=== PATIENT | female | born 1985 | race Caucasian/White ===

== ENCOUNTER 2017-02-24 23:10 | Emergency (ER) | payer BC ==
[~2017-02-24] VITALS: Ht 172.7 cm; Wt 88.5 kg
[~2017-02-24 23:10] MED LIST: BEN25 PO; EPIN0.3P4 INJ; PRED20TA PO
[2017-02-24 23:14] VITALS: Ht 172.7 cm; Wt 88.5 kg
[2017-02-25] MEDS ORDERED: TETRACAINE 0.5% 4 ML OPH LEFT EYE SCH (02:30)
[2017-02-25] MEDS ORDERED: FLUORESCEIN STRIP LEFT EYE ONE (02:30)
[2017-02-25] MEDS ORDERED: TETRACAINE 0.5% 4 ML OPH RIGHT EYE SCH (02:30)
[2017-02-25] MEDS ORDERED: FLUORESCEIN STRIP RIGHT EYE ONE (02:30)
[2017-02-25 02:49] VITALS: BP 130/75; PULSE 86; RESP 14; TEMP 98
[2017-02-25] MEDS ORDERED: ALPR0.25 PO (02:52)
[2017-02-25] MEDS ORDERED: LORA10CA PO (02:52)
[2017-02-25] MEDS ORDERED: ALBU8.5H3 INH (02:52)
[2017-02-25] MEDS ORDERED: Qvar (02:52)
--- NOTE | 2017-02-25 02:55 | ERD ---
ER Documentation Chief Complaint Date/Time DATE: 02/25/17 TIME: 02:51 Chief Complaint R EYE PAIN D/T HALF OF CONTACT LENSE STUCK ON EYE HPI 31-year-old female presents here in emergency department for complaints of foreign body contact lens stuck in her right eye, patient states that her contact lenses integrated, part of the contact lens got stuck in her right eye. Patient's complaining of tearing, burning pain 4/10 scale, worse upon over any closing the eyes. Patient was seen by primary care doctor, was told to possibly just have conjunctivitis, was given Polytrim antibiotics for this. Patient continues to feel foreign body sensation in this way she is here in the emergency department. She did start taking Polytrim antibiotics tonight. ROS All systems reviewed and are negative except as per history of present illness. Medications Home Meds Active Scripts Epinephrine (Epipen 2-Heriberto) 0.3 Mg/0.3 Ml Pen.injctr, 1 EA INJ ONCE Y for ALLERGIC REACTION, #1 EA Prov:STACY LOYA MD 11/28/15 Prednisone* (Prednisone*) 20 Mg Tab, 40 MG PO DAILY for 3 Days, TAB Prov:STACY LOYA MD 11/28/15 Diphenhydramine Hcl* (Benadryl*) 25 Mg Cap, 25 MG PO Q6, #20 CAP Prov:STACY LOYA MD 11/28/15 Reported Medications Alprazolam* (Xanax*) Unknown Strength Tablet, PO Q8H Y for ANXIETY, TAB 02/25/17 Loratadine* (Claritin*) Unknown Strength Capsule, PO DAILY, CAP 02/25/17 Albuterol Sulfate* (Proair HFA*) Unknown Strength Hfa.aer.ad, INH Q4, #1 INHALER 02/25/17 [Qvar] Unknown Strength No Conflict Check 02/25/17 Allergies Allergies: Coded Allergies: levofloxacin (Verified Allergy, Unknown, 12/28/14) shrimp (Verified Allergy, Unknown, 11/28/15) PMhx/Soc Medical and Surgical Hx: pt denies Surgical Hx History of Surgery: No Anesthesia Reaction: No Hx Neurological Disorder: No Hx Respiratory Disorders: Yes (ASTHMA) Hx Cardiac Disorders: No Hx Psychiatric Problems: No Hx Miscellaneous Medical Probl: No Hx Alcohol Use: No Hx Substance Use: No Hx Tobacco Use: No Smoking Status: Never smoker FmHx Family History: No coronary disease, No diabetes, No other Physical Exam Vitals Vital Signs Date Time Temp Pulse Resp B/P Pulse Ox O2 Delivery O2 Flow Rate FiO2 02/25/17 02:49 98.0 86 14 130/75 97 Room Air 02/24/17 23:14 97.5 91 20 132/77 98 Physical Exam GENERAL: The patient is well developed and appropriate for usual state of health, in no apparent distress. HEENT: Atraumatic. Bilateral eyes are PERRL EOM intact, right eye conjunctiva noted to be erythematous with contact lenses noted in the conjunctiva of the right eye. Ears: Normal tympanic membrane, no erythema or bulging. No ear canal swelling. No ear discharge. Nose: normal nasal turbinates, no erythema or swelling. Normal nasal discharge. Throat: oropharynx clear. No tonsillar swelling or tonsillar exudates. No lymphadenopathy. CHEST: Clear to auscultation bilaterally. There are no rales, wheezes or rhonchi. HEART: Regular rate and rhythm. No murmurs, clicks, rubs or gallops. No S3 or S4. ABDOMEN: Soft, nontender and nondistended. Good bowel sounds. No rebound or guarding. No gross peritonitis. No gross organomegaly or masses. No García sign or McBurney point tenderness. BACK: No midline or flank tenderness. EXTREMITIES: Equal pulses bilaterally. There is no peripheral clubbing, cyanosis or edema. No focal swelling or erythema. Full range of motion. Grossly neurovascularly intact. NEURO: Alert and oriented. Cranial nerves 2-12 intact. Motor strength in all 4 extremities with 5/5 strength. Sensation grossly intact. Normal speech and gait. SKIN: There is no apparent rash or petechia. The skin is warm and dry. HEMATOLOGIC AND LYMPHATIC: There is no evidence of excessive bruising or lymphedema. No gross cervical, axillary, or inguinal lymphadenopathy. Results 24 hrs Current Medications Medications (Trade) Dose Ordered Sig/Brayan Route PRN Reason Start Time Stop Time Status Last Admin Dose Admin Tetracaine HCl (Tetracaine 0.5% Steri-Unit Sangeeta) 1 drop ONCE LEFT EYE 02/25/17 02:30 02/25/17 02:30 DC Fluorescein Sodium (Vwfrp-H-Leaog) 1 strip ONCE ONCE LEFT EYE 02/25/17 02:30 02/25/17 02:30 DC Fluorescein Sodium (Vljip-Q-Wlmdj) 1 strip ONCE ONCE RIGHT EYE 02/25/17 02:30 02/25/17 02:31 DC 02/25/17 02:40 Tetracaine HCl (Tetracaine 0.5% Steri-Unit Sangeeta) 1 drop ONCE RIGHT EYE 02/25/17 02:30 02/26/17 02:29 02/25/17 02:39 Procedures/MDM Procedure Note: After obtaining informed consent, the right eye was numbed using tetracaine ophthalmic solution, the right eye was stained using fluorescein dye. After staining the eye, A Wood's lamp was used to evaluate the eye. Noted foreign body, this was removed without any difficulty. No corneal abrasions noted. Patient tolerated procedure well. Medical Decision making: Patient had a foreign body in the right eye, no corneal abrasion was noted after removal of the foreign body. Patient is currently allergic to levofloxacin, currently has polymyxin trimethoprim ophthalmic solution, was advised to continue taking medications to prevent infection of affected area. Patient was advised to see eye doctor within 1-2 days. No symptoms of any other eye emergencies, no other foreign body noted. The foreign body was removed without any difficulty. Patient is advised to follow-up with eye doctor within 1-2 days, return to emergency department for any worsening symptoms. A Disposition: Home. Stable. Departure Diagnosis: Primary Impression: Eye foreign body Encounter type: initial encounter Laterality: right Qualified Code: T15.91XA - Eye foreign body, right, initial encounter Condition: Stable Patient Instructions: Corneal Foreign Body, Removed Referrals: DOUG PITTMAN MD Additional Instructions: continue antibiotics, see eye doctor within 1-2 days for reevaluation GONZALO DEAN NP Feb 25, 2017 02:55
== END 2017-02-25 02:36 | disposition home or self-care (01) ==
LOC: FTE 23:10
DX: T15.91XA Foreign body on external eye, part unspecified, right eye, initial encounter (principal); J45.909 Unspecified asthma, uncomplicated; X58.XXXA Exposure to other specified factors, initial encounter; Y92.9 Unspecified place or not applicable
CPT/HCPCS: 99283

== ENCOUNTER 2017-03-20 00:28 | Emergency (ER) | payer BC ==
[~2017-03-20] VITALS: Ht 165.1 cm; Wt 88.5 kg
[~2017-03-20 00:28] MED LIST changes: +ALBU8.5H3 INH; +ALPR0.25 PO; +LORA10CA PO; +Qvar
[2017-03-20 00:40] VITALS: Ht 165.1 cm; Wt 88.5 kg
--- NOTE | 2017-03-20 00:56 | ERD ---
ER Documentation Chief Complaint Date/Time DATE: 03/20/17 TIME: 00:53 Chief Complaint rt ankle pain and swelling r/t trip and fall,took Advil at 2300 HPI Patient is a 31-year-old female who presents the emergency department for concerns right ankle and foot pain 1 day. Patient states she was on the elliptical yesterday. Patient states her foot got caught when getting off and states she twisted her ankle. Patient states presently 2 hours ago she developed some ecchymosis and swelling to the ankle and lateral side of her foot. She reports taking ibuprofen 800 mg prior to arrival. Patient states currently she has no pain. Patient is able to ambulate with minimal pain. Patient denies any injuries to the affected extremity. Patient denies any fevers, chills, nausea, vomiting or LOC. ROS All systems reviewed and are negative except as per history of present illness. Medications Home Meds Active Scripts Ibuprofen* (Motrin*) 600 Mg Tab, 600 MG PO Q6, #30 TAB Prov:ANTHONY SALMON PA-C 03/20/17 Epinephrine (Epipen 2-Heriberto) 0.3 Mg/0.3 Ml Pen.injctr, 1 EA INJ ONCE Y for ALLERGIC REACTION, #1 EA Prov:STACY LOYA MD 11/28/15 Prednisone* (Prednisone*) 20 Mg Tab, 40 MG PO DAILY for 3 Days, TAB Prov:STACY LOYA MD 11/28/15 Diphenhydramine Hcl* (Benadryl*) 25 Mg Cap, 25 MG PO Q6, #20 CAP Prov:STACY LOYA MD 11/28/15 Reported Medications Alprazolam* (Xanax*) Unknown Strength Tablet, PO Q8H Y for ANXIETY, TAB 02/25/17 Loratadine* (Claritin*) Unknown Strength Capsule, PO DAILY, CAP 02/25/17 Albuterol Sulfate* (Proair HFA*) Unknown Strength Hfa.aer.ad, INH Q4, #1 INHALER 02/25/17 [Qvar] Unknown Strength No Conflict Check 02/25/17 Allergies Allergies: Coded Allergies: levofloxacin (Verified Allergy, Unknown, 12/28/14) shrimp (Verified Allergy, Unknown, 11/28/15) PMhx/Soc Medical and Surgical Hx: pt denies Surgical Hx History of Surgery: No Anesthesia Reaction: No Hx Neurological Disorder: No Hx Respiratory Disorders: Yes (ASTHMA) Hx Cardiac Disorders: No Hx Psychiatric Problems: No Hx Miscellaneous Medical Probl: No Hx Alcohol Use: No Hx Substance Use: No Hx Tobacco Use: No Smoking Status: Never smoker Physical Exam Vitals Vital Signs Date Time Temp Pulse Resp B/P Pulse Ox O2 Delivery O2 Flow Rate FiO2 03/20/17 00:40 98.6 91 18 132/79 97 Physical Exam GENERAL: Well-developed, well-nourished female. Appears in no acute distress. HEAD: Normocephalic, atraumatic. EYES: Pupils are equally reactive bilaterally. EOMs grossly intact. No conjunctival erythema. ENT: Moist mucous membranes. No uvula deviation. No kissing tonsils. NECK: Supple. No meningismus. Normal range of motion of the neck. LUNG: Clear to auscultation bilaterally. No rhonchi, wheezing, rales or coarse breath sounds. HEART: Regular rate and rhythm. No murmurs, rubs or gallops. EXTREMITIES: Equal pulses bilaterally. No peripheral clubbing, cyanosis or edema. No unilateral leg swelling. NEUROLOGIC: Alert and oriented. Moving all four extremities without any difficulty. Normal speech. Steady gait. SKIN: Normal color. Warm and dry. No rashes or lesions. RIGHT FOOT/ANKLE: No deformity, erythema. Midfoot swelling and ankle swelling noted. Ecchymosis noted to the lateral aspect of the foot and lateral ankle. Ecchymosis also noted to the medial ankle. Normal range of motion of the ankle and all digits. Range of motion of the knee. Nontender to palpation of the tibia/fibula, midfoot, fifth metatarsal. Slightly tender to palpation of the lateral ankle.. No valgus/varus instability. Sensation intact to light touch. Neurovascularly intact. (Able to plantarflex, dorsiflex, slime foot, invert foot , raise big toe.) 2+ DP and DT pulses. Procedures/MDM ED COURSE: The patient was stable throughout ED course. I kept the patient and/or family informed of laboratory and diagnostic imaging results throughout the ED course. DIAGNOSTIC IMAGING: Read by radiologist. DIAGNOSTIC IMAGING REPORT Patient: PRAVIN TORRES : 1985 Age: 31 Sex: F MR #: [id number] DOS: 03/20/1749 Ordering MD: ANTHONY SALMON PA-C Location: [facility] Room/Bed: PROCEDURE: XR Ankle. CLINICAL INDICATION: Ankle pain. TECHNIQUE: AP, lateral and oblique views of the right ankle were performed. COMPARISON: There are no similar studies submitted for comparison. FINDINGS: There is normal bone mineralization.There is no acute fracture or dislocation.The ankle mortise is intact.No osseous lesion is identified. There is mild soft tissue swelling of the ankle most prominent over the lateral aspect of the ankle. IMPRESSION: No acute fracture or dislocation. RPTAT: HIKT .Martín Conn MD, Date Time Electronically viewed and signed by .Martín Conn MD, MD on 03/20/2017 01:28 .T/ CC: ANTHONY SALMON PA-C Patient: PRAVIN TORRES : 1985 Age: 31 Sex: F MR #: [id number] DOS: 03/20/1749 Ordering MD: ANTHONY SALMON PA-C Location: [facility] Room/Bed: PROCEDURE: XR Right Foot. CLINICAL INDICATION: Trauma. Pain.. TECHNIQUE: AP, lateral and oblique views of the right foot was obtained. The images were reviewed on a PACS workstation. COMPARISON: None. FINDINGS: There are no fractures. Joint relationships are maintained. Bone mineralization is within normal limits. Soft tissues are unremarkable. IMPRESSION: No acute abnormality. RPTAT: HMVK .Josse Justice MD, MD Date Time Electronically viewed and signed by .Josse Justice MD, MD on 03/20/2017 01:34 .K/ CC: ANTHONY SALMON PA-C DIAGNOSTIC IMAGING REPORT Patient: PRAVIN TORRES : 1985 Age: 31 Sex: F MR #: [id number] [facility] #: [id number] DOS: 03/20/17 0152 Ordering MD: ANTHONY SALMON PA-C Location: [facility] Room/Bed: PROCEDURE: PA and lateral chest x-ray. CLINICAL INDICATION: 31-year-old female. Rib pain.. TECHNIQUE: PA and lateral views of the chest. COMPARISON: None. FINDINGS: Lungs are clear.. Cardiomediastinal contours are normal. Negative for pleural effusion or pneumothorax. No acute bony abnormality. Negative for evidence of acute rib fracture. IMPRESSION: Negative for evidence of an acute chest process. No acute fractures are identified although nondisplaced rib fractures may be missed on plain radiographs. RPTAT: HCTS Physician Armando Date Time Electronically viewed and signed by Deann Hardin Physician on 03/20/2017 02: 09 CS/ CC: ANTHONY SALMON PA-C PROCEDURES: SPLINT APPLICATION: The patient was verbally consented at bedside prior to splint application. Patient was explained the risks, benefits and alternatives to this procedure. The patient was neurovascularly intact prior to and status post application of the splint. The patient tolerated the procedure well with no complications. Splint type: FRANCIS wrap Extremity: right LE Indication: ankle/ foot sprain MEDICAL DECISION MAKING: This is a 31-year-old female who presents to the ED with concerns of right ankle pain and foot pain after a fall injury off the elliptical yesterday. Vital signs were reviewed. Patient was afebrile. X-ray imaging of the right ankle and foot were unremarkable. She was placed in an Francis wrap for comfort measures. Given these findings, the patients presentation is most consistent with right ankle and foot sprain. I have a much lower clinical concern for ankle dislocation, ankle fracture, tibia fracture, fibula fracture, tibial plateau fracture, Maisonneuve fracture, foot fracture, osteomyelitis, septic joint, gout, osteoarthritis, DVT, compartment syndrome. At this time, unable to rule out any tendon and ligament injuries. Of note, prior to discharge, patient stated that she did have some right-sided rib pain. Patient requested x-ray imaging. CXR was obtained. At this time patient's presentation is most consistent with right rib contusion. Low suspicion for pneumothorax, rib fracture, pleural effusion, pneumonia. PRESCRIPTIONS: Ibuprofen DISCHARGE: At this time, patient is stable for discharge and outpatient management. RICE therapy and ROM exercises were advised to avoid stiffness. I have instructed the patient to follow-up with his/her primary care physician in 1-2 days. I have discussed with the patient the possibility of needing to see an alignment specialist for further workup and imaging if the pain persists. I have instructed the patient to promptly return to the ER for any new or worsening symptoms including increased pain, swelling, redness, warmth or fever. The patient and/or family expressed understanding of and agreement with this plan. All questions were answered. Home care instructions were provided. Disclaimer: Inadvertent spelling and grammatical errors are likely due to EHR/ dictation software use and do not reflect on the overall quality of patient care. Also, please note that the electronic time recorded on this note does not necessarily reflect the actual time of the patient encounter. Departure Diagnosis: Primary Impression: Ankle injury Encounter type: initial encounter Laterality: right Qualified Code: S99.911A - Ankle injury, right, initial encounter Condition: Stable Patient Instructions: What Are Ankle Sprains? Referrals: ALICE HAYWARD MD (PCP) Additional Instructions: Call your primary care doctor TOMORROW for an appointment during the next 1-2 days.See the doctor sooner or return here if your condition worsens before your appointment time. We will to rule out any ligament or tendon injuries at this time. Patient advised to follow-up with an alignment specialist and/or obtain an MRI and outpatient basis if pain persists. ANTHONY SALMON PA-C Mar 20, 2017 00:56
--- NOTE | 2017-03-20 01:28 | RADRPT ---
PROCEDURE: XR Ankle. CLINICAL INDICATION: Ankle pain. TECHNIQUE: AP, lateral and oblique views of the right ankle were performed. COMPARISON: There are no similar studies submitted for comparison. FINDINGS: There is normal bone mineralization.There is no acute fracture or dislocation.The ankle mortise is i ntact.No osseous lesion is identified. There is mild soft tissue swelling of the ankle most prominen t over the lateral aspect of the ankle. IMPRESSION: No acute fracture or dislocation. RPTAT: HIKT .Martín Conn MD, MD Date Time Electronically viewed and signed by .Martín Conn MD, MD on 03/20/2017 01:28 .T/
--- NOTE | 2017-03-20 01:34 | RADRPT ---
PROCEDURE: XR Right Foot. CLINICAL INDICATION: Trauma. Pain.. TECHNIQUE: AP, lateral and oblique views of the right foot was obtained. The images were reviewed on a PACS workstation. COMPARISON: None. FINDINGS: There are no fractures. Joint relationships are maintained. Bone mineralization is within normal l imits. Soft tissues are unremarkable. IMPRESSION: No acute abnormality. RPTAT: HMVK .Josse Justice MD, MD Date Time Electronically viewed and signed by .Josse Justice MD, on 03/20/2017 01:34 .K/
[2017-03-20] MEDS ORDERED: IBUP-1542 PO (01:49)
--- NOTE | 2017-03-20 02:09 | RADRPT ---
PROCEDURE: PA and lateral chest x-ray. CLINICAL INDICATION: 31-year-old female. Rib pain.. TECHNIQUE: PA and lateral views of the chest. COMPARISON: None. FINDINGS: Lungs are clear.. Cardiomediastinal contours are normal. Negative for pleural effusion or pneumothorax. No acute bony abnormality. Negative for evidence of acute rib fracture. IMPRESSION: Negative for evidence of an acute chest process. No acute fractures are identified although nondisplaced rib fractures may be missed on plain radiogr aphs. RPTAT: HCTS Physician Armando Date Time Electronically viewed and signed by Physician Armando on 03/20/2017 02:09 /
== END 2017-03-20 02:17 | disposition home or self-care (01) ==
LOC: FTE 00:28
DX: S99.911A Unspecified injury of right ankle, initial encounter (principal); J45.909 Unspecified asthma, uncomplicated; W01.0XXA Fall on same level from slipping, tripping and stumbling without subsequent striking against object, initial encounter; Y92.9 Unspecified place or not applicable
CPT/HCPCS: 71020; 73630